=== PATIENT | male | born 1970 | race Caucasian/White ===

== ENCOUNTER 2019-11-23 15:22 | Inpatient (IN) | payer SELFPAY ==
[~2019-11-23] VITALS: Ht 177.8 cm; Wt 140.7 kg
[~2019-11-23 15:22] MED LIST: LEVO75TA PO; LORA10TA68 PO; MULT1TAB52 PO; NAPR-514 PO; OLME20TA17 PO; OXYC1TAB22 PO; TEST200V3 IM
--- NOTE | 2019-11-23 15:44 | PHYS DOC ---
Past History Past Medical History: Other (MARY LANGFORD MD) Adult General Chief Complaint Chief Complaint: SHORTNESS OF BREATH HPI HPI Patient is a 49-year-old male who presents with complaint of shortness of breath and cough that has been going on for the last few weeks. Patient indicates that symptoms have gotten progressively worse and now he is getting severely short of breath with minimal exertion. He also admits to swelling in his right lower leg that is greater than the left leg. He states that that is not normal for him. Patient is not aware of any history of blood clots. He denies any chest pain. He also denies any fever. Patient states that his cough is intermittently productive of clear sputum.[] (ALEXA WAGNER Jr. DO) Review of Systems Review of Systems Constitutional: Denies fever or chills [] Respiratory: Positive cough and shortness of breath [] Cardiovascular: No additional information not addressed in HPI [] GI: Denies abdominal pain, nausea, vomiting or diarrhea [] Integument: Denies rash or skin lesions [] Neurologic: Denies headache, focal weakness or sensory changes [] All other systems were reviewed and found to be within normal limits, except as documented in this note. (ALEXA WAGNER Jr. DO) Current Medications Current Medications Current Medications Medications (Trade) Dose Ordered Sig/Blas Start Time Stop Time Status Last Admin Dose Admin Albuterol/ Ipratropium (Duoneb) 3 ml 1X ONCE 11/23/19 15:45 11/23/19 15:46 UNV (ALEXA WAGNER Jr. DO) Allergies Allergies Allergies Coded Allergies Type Severity Reaction Last Updated Verified morphine Allergy Mild itch 08/19/14 Yes oxycodone Allergy Mild nightmares 08/19/14 Yes (ALEXA WAGNER Jr. DO) Physical Exam Physical Exam Constitutional: Well developed, well nourished, no acute distress, non-toxic appearance. [] HENT: Normocephalic, atraumatic, bilateral external ears normal, oropharynx moist, no oral exudates, nose normal. [] Eyes: PERRLA, EOMI, conjunctiva normal, no discharge. [] Neck: Normal range of motion, no tenderness, supple. [] Cardiovascular: Tachycardic rate with regular rhythm[] Lungs & Thorax: Slightly diminished breath sounds are noted bilaterally to auscultation [] Abdomen: Bowel sounds normal, soft, no tenderness. [] Skin: Warm, dry, no erythema, no rash. [] Extremities: No tenderness, no cyanosis, no clubbing, ROM intact, with bilateral lower extremity edema, right greater than left. [] Neurologic: Alert and oriented X 3, no focal deficits noted. [] (ALEXA WAGNER Jr., DO) EKG EKG EKG demonstrates sinus tachycardia with rate of 124.[] (ALEXA WAGNER Jr., DO) Radiology/Procedures Radiology/Procedures [] Impressions: REASON: dyspnea, non-smoker, no lung or heart problems in past PROCEDURE: PORTABLE CHEST 1V EXAM: Chest, single view. HISTORY: Dyspnea. COMPARISON: None. FINDINGS: A frontal view of the chest obtained. There is mild interstitial prominence without laura congestion or is focal consolidation. There is no pleural effusion or pneumothorax. There is a prominent cardiac silhouette, a component of which is accentuated due to portable technique. IMPRESSION: No acute pulmonary finding. Electronically signed by: Nohemy Doyle MD (11/23/2019 4:30 PM) [place] [id number] DICTATED AND SIGNED BY: NOHEMY DOYLE MD DATE: 11/23/19 1630 CC: ALEXA WAGNER Jr., DO; XIOMARA LOO MD ~ PROCEDURE: CT ANGIOGRAPHY CHEST CTA Chest with contrast: Clinical History: Shortness of breath. Axial helical images of the chest were obtained after the administration of 100 cc of IV Isovue-370 and timed appropriately for a pulmonary arterial study. Conventional axial reconstruction was performed in addition to coronal, sagittal and bilateral oblique MIP (maximum intensity projection). This study was ordered to detect possible pulmonary embolism. There are no filling defects to suggest pulmonary embolism. The more peripheral subsegmental pulmonary arteries are not well opacified limiting our sensitivity for small peripheral pulmonary emboli. There is mild groundglass opacities in the lungs. There is no mediastinal or hilar lymphadenopathy. The thoracic aorta appears normal. Impression: 1. No evidence of pulmonary embolism. 2. Mild groundglass opacities are nonspecific and likely discoid atelectasis. PQRS Compliance Statement: One or more of the following individualized dose reduction techniques were utilized for this examination: 1. Automated exposure control 2. Adjustment of the mA and/or kV according to patient size 3. Use of iterative reconstruction technique Electronically signed by: Anabela Jones III, MD (11/23/2019 6:30 PM) [facility] DICTATED AND SIGNED BY: ANABELA JONES III, MD DATE: 11/23/191829 (ALEXA WAGNER Jr., DO) Course & Med Decision Making Course & Med Decision Making Pertinent Labs and Imaging studies reviewed. (See chart for details) [] (ALEXA WAGNER Jr., DO) Course & Med Decision Making See Dr. Wagner chart for details. (MARY LANGFORD MD) Dragon Disclaimer Dragon Disclaimer This electronic medical record was generated, in whole or in part, using a voice recognition dictation system. (ALEXA WAGNER Jr., DO) Departure Departure: Impression: Primary Impression: CHF (congestive heart failure) Additional Impression: Hypoxemia Disposition: ADMITTED INPATIENT Admitting Physician: Luis Ballesteros (ALEXA WAGNER Jr., DO) Condition: IMPROVED Dragon Disclaimer This chart was dictated in whole or in part using Voice Recognition software in a busy, high-work load, and often noisy Emergency Department environment. It may contain unintended and wholly unrecognized errors or omissions. (MARY LANGFORD MD) Dragon Disclaimer This chart was dictated in whole or in part using Voice Recognition software in a busy, high-work load, and often noisy Emergency Department environment. It may contain unintended and wholly unrecognized errors or omissions. (ALEXA WAGNER Jr., DO) Dragon Disclaimer This chart was dictated in whole or in part using Voice Recognition software in a busy, high-work load, and often noisy Emergency Department environment. It may contain unintended and wholly unrecognized errors or omissions. (MARY LANGFORD MD) Dragon Disclaimer This chart was dictated in whole or in part using Voice Recognition software in a busy, high-work load, and often noisy Emergency Department environment. It may contain unintended and wholly unrecognized errors or omissions. (ALEXA WAGNER Jr., DO) Problem Qualifiers Primary Impression: CHF (congestive heart failure) Heart failure type: unspecified Heart failure chronicity: unspecified Qualified Codes: I50.9 - Heart failure, unspecified ALEXA WAGNER Jr., DO Nov 23, 2019 15:44 MARY LANGFORD MD Nov 24, 2019 00:07
[2019-11-23] MEDS ORDERED: IPRATRPIUM/ALBUTEROL 0.5/2.5MG 3 ML NEBU. NEB ONE (15:45)
[2019-11-23 15:59] LABS: BASO # 0.1 x10^3/uL (0.0-0.2); BASO % 1 % (0-3); EOS # 0.2 x10^3/uL (0.0-0.7); EOS % 2 % (0-3); HEMATOCRIT 48.6 % (39.0-53.0); HEMOGLOBIN 15.9 g/dL (13.0-17.5); LYMPH # 1.1 x10^3/uL (1.0-4.8); LYMPH % 11 % (24-48); MEAN CORPUSCULAR HEMOGLOBIN 27 pg (25-35); MEAN CORPUSCULAR HGB CONC 33 g/dL (31-37); MEAN CORPUSCULAR VOLUME 83 fL (79-100); MONO % 10 % (0-9); NEUT # 7.8 x10^3uL (1.8-7.7); NEUT % 77 % (31-73); PLATELET COUNT 283 x10^3/uL (140-400); RED BLOOD COUNT 5.83 x10^6/uL (4.30-5.70); RED CELL DISTRIBUTION WIDTH 14.7 % (11.5-14.5); WHITE BLOOD COUNT 10.2 x10^3/uL (4.0-11.0)
[2019-11-23 16:10] LABS: CALCIUM 8.8 mg/dL (8.5-10.1); CREATININE 1.1 mg/dL (0.7-1.3); GFR 71.1; POTASSIUM 4.3 mmol/L (3.5-5.1)
[2019-11-23 16:19] LABS: ALBUMIN 3.3 g/dL (3.4-5.0); ALBUMIN/GLOBULIN RATIO 0.9 (1.0-1.7); TOTAL BILIRUBIN 0.5 mg/dL (0.2-1.0); TOTAL PROTEIN 6.9 g/dL (6.4-8.2)
--- NOTE | 2019-11-23 16:33 | RAD ---
EXAM: Chest, single view. HISTORY: Dyspnea. COMPARISON: None. FINDINGS: A frontal view of the chest obtained. There is mild interstitial prominence without laura congestion or is focal consolidation. There is no pleural effusion or pneumothorax. There is a prominent cardiac silhouette, a component of which is accentuated due to portable technique. IMPRESSION: No acute pulmonary finding. Electronically signed by: Nohemy Sood MD (11/23/2019 4:30 PM) [place] [id number]
--- NOTE | 2019-11-23 16:37 | RAD ---
EXAM: Right lower extremity venous Doppler sonogram. HISTORY: Pain and swelling. TECHNIQUE: Schmid scale and color Doppler sonographic evaluation of the right lower extremity veins with spectral waveform analysis was performed. FINDINGS: There is normal color flow, normal compressibility and there are normal spectral waveforms in the common femoral, superficial femoral, popliteal, posterior tibial and greater saphenous veins. IMPRESSION: No Doppler evidence of lower extremity deep venous thrombosis. Electronically signed by: Nohemy Sood MD (11/23/2019 4:34 PM) [place] [id number]
[2019-11-23] MEDS ORDERED: IOHEXOL 350 MG/ML 100 ML VIAL. IV ONE (18:00)
[2019-11-23] MEDS ORDERED: IOHEXOL 350 MG/ML 100 ML VIAL. ONE (18:04)
[2019-11-23] MEDS ORDERED: ONDANSETRON PF 4 MG/2 ML VIAL. IV PRN (18:30)
--- NOTE | 2019-11-23 18:32 | RAD ---
CTA Chest with contrast: Clinical History: Shortness of breath. Axial helical images of the chest were obtained after the administration of 100 cc of IV Isovue-370 and timed appropriately for a pulmonary arterial study. Conventional axial reconstruction was performed in addition to coronal, sagittal and bilateral oblique MIP (maximum intensity projection). This study was ordered to detect possible pulmonary embolism. There are no filling defects to suggest pulmonary embolism. The more peripheral subsegmental pulmonary arteries are not well opacified limiting our sensitivity for small peripheral pulmonary emboli. There is mild groundglass opacities in the lungs. There is no mediastinal or hilar lymphadenopathy. The thoracic aorta appears normal. Impression: 1. No evidence of pulmonary embolism. 2. Mild groundglass opacities are nonspecific and likely discoid atelectasis. PQRS Compliance Statement: One or more of the following individualized dose reduction techniques were utilized for this examination: 1. Automated exposure control 2. Adjustment of the mA and/or kV according to patient size 3. Use of iterative reconstruction technique Electronically signed by: Jairo Larkin III, MD (11/23/2019 6:30 PM) [facility]
[2019-11-23] MEDS: IPRATRPIUM/ALBUTEROL 0.5/2.5MG 3 ML NEBU. NEB SCH (20:00)
[2019-11-24 01:06] VITALS: BP 127/105
--- NOTE | 2019-11-24 04:33 | NUR ---
Pt transported from ED to ICU room 5 for CHF/SOA with possession @ 0045. Assessment as charted. Admission checklist started. Pt monitored on Telemetry with Sinus Tachycardia 100-130s. No complaints of pain at the moment. Continue with plan of care
[2019-11-24] MEDS: IPRATRPIUM/ALBUTEROL 0.5/2.5MG 3 ML NEBU. NEB SCH ×3 (05:21→16:00)
[2019-11-24 05:47] VITALS: BP 106/88
--- NOTE | 2019-11-24 05:49 | EKG ---
[address] [address] Test Date: 2019-11-23 Test Time: 20:30:07 Pat Name: MIHAI RAMIREZ Department: Room: Gender: M Jewel Supervisor: : 1970 Requested By: ALEXA VANCE Order Number: [id number] Reading MD: Measurements Intervals [place] Rate: 105 P: 60 HI: 144 QRS: 55 QRSD: 82 T: 55 QT: 350 QTc: 467 Interpretive Statements SINUS TACHYCARDIA LEFT ATRIAL ABNORMALITY R-S TRANSITION ZONE IN V LEADS DISPLACED TO THE LEFT LOW LIMB LEAD VOLTAGE ABNORMAL ECG RI6.01 No previous ECG available for comparison
[2019-11-24 07:18] LABS: BASO # 0.1 x10^3/uL (0.0-0.2); BASO % 1 % (0-3); EOS # 0.4 x10^3/uL (0.0-0.7); EOS % 4 % (0-3); HEMATOCRIT 46.4 % (39.0-53.0); HEMOGLOBIN 15.1 g/dL (13.0-17.5); LYMPH # 1.1 x10^3/uL (1.0-4.8); LYMPH % 11 % (24-48); MEAN CORPUSCULAR HEMOGLOBIN 28 pg (25-35); MEAN CORPUSCULAR HGB CONC 33 g/dL (31-37); MEAN CORPUSCULAR VOLUME 84 fL (79-100); MONO # 0.9 x10^3/uL (0.0-1.1); MONO % 9 % (0-9); NEUT # 7.5 x10^3uL (1.8-7.7); NEUT % 75 % (31-73); PLATELET COUNT 235 x10^3/uL (140-400); RED BLOOD COUNT 5.49 x10^6/uL (4.30-5.70); RED CELL DISTRIBUTION WIDTH 14.6 % (11.5-14.5)
[2019-11-24 07:29] LABS: CALCIUM 8.2 mg/dL (8.5-10.1); CREATININE 1.1 mg/dL (0.7-1.3); GFR 71.1; POTASSIUM 4.1 mmol/L (3.5-5.1)
[2019-11-24] MEDS ORDERED: oxyCODONE/APAP 10/325 1 TAB TABLET PO PRN (07:45)
[2019-11-24] MEDS ORDERED: LISI1TAB19 PO (08:21)
[2019-11-24 08:30] LABS: BGAS PH 7.6 (7.35-7.46)
[2019-11-24] MEDS ORDERED: hydroCHLOROthiazide 12.5 MG CAPSULE PO SCH (09:00)
[2019-11-24] MEDS ORDERED: LISINOPRIL 20 MG TABLET PO SCH (09:00)
[2019-11-24] MEDS ORDERED: NAPROXEN 500 MG TABLET PO SCH (09:00)
[2019-11-24] MEDS: MULTIVITAMIN with MINERAL TABLET. PO SCH (09:02)
[2019-11-24] MEDS: LEVOTHYROXINE 75 MCG TABLET PO SCH (09:03)
[2019-11-24 09:22] VITALS: BP 114/69
[2019-11-24] MEDS ORDERED: FUROSEMIDE 40 MG/4 ML VIAL IVP ONE (09:30)
--- NOTE | 2019-11-24 09:30 | NUR ---
Dr Conner here to see pt. Order for [address] stated he would look at meds and hx and adjust treatment accordingly.
[2019-11-24 11:25] VITALS: BP 133/87
[2019-11-24] MEDS ORDERED: MAGNESIUM HYDROXIDE 2,400 MG/30 ML ORAL.SUSP. PO PRN (11:30)
--- NOTE | 2019-11-24 11:37 | NUR ---
Pt has voiced 1600 cc urine thus far. Urine lt yellow. Pt states he is constipated. Order for MOM. Pt noted to have significant periods of apneic spells. 20-30 sec. Pt on 2l/NC. to bring in home CPAP.
[2019-11-24 16:11] VITALS: BP 122/90
--- NOTE | 2019-11-24 17:54 | PDOC2 ---
CARDIAC CONSULT DATE OF CONSULT Date Of Consult DATE: 11/24/19 TIME: 17:49 REASON FOR CONSULT Reason for Consult Shortness of breath REFERRING PHYSICIAN Referring Physician Dr. Ballesteros SOURCE Source: Chart review, Patient HPI History of Present Illness The patient is an obese 49-year-old male who was admitted through the emergency room for several weeks of increasing shortness of breath and lower extremity swelling. The patient denies any chest pain. He states he has had similar problems in the past but denies any history of coronary disease or DVTs. Initial workup has shown a chest x-ray that shows no acute findings. CT scan of the chest showed no evidence of pulmonary emboli. Troponin has peaked at 0.086 creatinine of 1.1. Though she may ultrasound shows no DVT. EKG shows a sinus rhythm with no ischemic changes. With pulmonary medications overnight the patient is feeling better today. PAST MEDICAL HISTORY Cardiovascular: HTN Pulmonary: Bronchitis Dermatology: Cellulitis PAST SURGICAL HISTORY Past Surgical History: No pertinent history FAMILY HISTORY Family History: Hypertension SOCIAL HISTORY Smoke: No CURRENT MEDICATIONS Current Medications Current Medications Albuterol/ Ipratropium (Duoneb) 3 ml 1X ONCE NEB Last administered on 11/23/19at 15:46; Start 11/23/19 at 15:45; Stop 11/23/19 at 15:58; Status DC Iohexol (Omnipaque 350 Mg/ml) 100 ml 1X ONCE IV Last administered on 11/23/19at 18:06; Start 11/23/19 at 18:00; Stop 11/23/19 at 18:04; Status DC Iohexol (Omnipaque 350 Mg/ml) 100 ml STK-MED ONCE .ROUTE ; Start 11/23/19 at 18:04; Stop 11/23/19 at 18:05; Status DC Ondansetron HCl (Zofran) 4 mg PRN Q4HRS PRN IV NAUSEA/VOMITING; Start 11/23/19 at 18:30; Stop 11/24/19 at 18:29 Albuterol/ Ipratropium (Duoneb) 3 ml RTQID NEB Last administered on 11/24/19at 16:00; Start 11/23/19 at 20:00; Stop 11/24/19 at 19:59 Levothyroxine Sodium (Synthroid) 75 mcg DAILY06 PO Last administered on 11/24/19at 09:03; Start 11/24/19 at 08:00 Naproxen (Naprosyn) 500 mg BID PO Last administered on 11/24/19at 09:03; Start 11/24/19 at 09:00 Oxycodone/ Acetaminophen (Percocet 10/325) 1 tab PRN Q6HRS PRN PO PAIN; Start 11/24/19 at 07:45 Multivitamins/ Calcium (Thera-M Plus) 1 tab DAILY PO Last administered on 11/24/19at 09:02; Start 11/24/19 at 09:00 Lisinopril (Prinivil) 20 mg DAILY PO Last administered on 11/24/19at 09:03; Start 11/24/19 at 09:00 Hydrochlorothiazide (Microzide) 12.5 mg DAILY PO Last administered on 11/24/19at 09:03; Start 11/24/19 at 09:00 Furosemide (Lasix) 40 mg 1X ONCE IVP Last administered on 11/24/19at 09:30; Start 11/24/19 at 09:30; Stop 11/24/19 at 09:31; Status DC Magnesium Hydroxide (Milk Of Magnesia) 2,400 mg PRN DAILY PRN PO CONSTIPATION Last administered on 11/24/19at 12:02; Start 11/24/19 at 11:30 Active Scripts Active Reported Lisinopril-Hctz 20-12.5 Mg Tab (Lisinopril/Hydrochlorothiazide) 1 Each Tablet 1 Tab PO DAILY Multivitamins (Multivitamin) 1 Each Tablet 1 Tab PO DAILY Testosterone Cypionate 200 Mg/1 Ml Vial 1 Ml IM Q4WK Percocet 10-325 Mg Tablet (Oxycodone Hcl/Acetaminophen) 1 Each Tablet 1 Tab PO Q4-6HRS Naproxen 500 Mg Tablet 1 Tab PO BID Synthroid (Levothyroxine Sodium) 75 Mcg Tablet 1 Tab PO DAILY ALLERGIES Allergies: Coded Allergies: morphine (Verified Allergy, Mild, itch, 08/19/14) oxycodone (Verified Allergy, Mild, nightmares, 08/19/14) ROS Respiratory: YES: Shortness of breath, SOB with excertion PHYSICAL EXAM General: mild distress HEENT: Atraumatic Lungs: Other (decreased breath sounds) Heart: Regular rate Abdomen: Normal bowel sounds Extremities: Other (mild to moderate bilateral edema) VITALS Vital Signs Vital Signs Date Time Temp Pulse Resp B/P (MAP) Pulse Ox O2 Delivery O2 Flow Rate FiO2 11/24/19 16:11 97.9 107 28 122/90 (101) 2.0 11/24/19 16:01 96 Nasal Cannula LABS LABS Laboratory Tests Test 11/23/19 15:38 11/23/19 16:18 11/24/19 00:55 11/24/19 05:30 White Blood Count 10.2 x10^3/uL (4.0-11.0) 10.0 x10^3/uL (4.0-11.0) Red Blood Count 5.83 x10^6/uL (4.30-5.70) 5.49 x10^6/uL (4.30-5.70) Hemoglobin 15.9 g/dL (13.0-17.5) 15.1 g/dL (13.0-17.5) Hematocrit 48.6 % (39.0-53.0) 46.4 % (39.0-53.0) Mean Corpuscular Volume 83 fL (79-100) 84 fL (79-100) Mean Corpuscular Hemoglobin 27 pg (25-35) 28 pg (25-35) Mean Corpuscular Hemoglobin Concent 33 g/dL (31-37) 33 g/dL (31-37) Red Cell Distribution Width 14.7 % (11.5-14.5) 14.6 % (11.5-14.5) Platelet Count 283 x10^3/uL (140-400) 235 x10^3/uL (140-400) Neutrophils (%) (Auto) 77 % (31-73) 75 % (31-73) Lymphocytes (%) (Auto) 11 % (24-48) 11 % (24-48) Monocytes (%) (Auto) 10 % (0-9) 9 % (0-9) Eosinophils (%) (Auto) 2 % (0-3) 4 % (0-3) Basophils (%) (Auto) 1 % (0-3) 1 % (0-3) Neutrophils # (Auto) 7.8 x10^3uL (1.8-7.7) 7.5 x10^3uL (1.8-7.7) Lymphocytes # (Auto) 1.1 x10^3/uL (1.0-4.8) 1.1 x10^3/uL (1.0-4.8) Monocytes # (Auto) 1.0 x10^3/uL (0.0-1.1) 0.9 x10^3/uL (0.0-1.1) Eosinophils # (Auto) 0.2 x10^3/uL (0.0-0.7) 0.4 x10^3/uL (0.0-0.7) Basophils # (Auto) 0.1 x10^3/uL (0.0-0.2) 0.1 x10^3/uL (0.0-0.2) D-Dimer (Angelika) 0.58 mg/L (0.00-0.50) Sodium Level 141 mmol/L (136-145) 142 mmol/L (136-145) Potassium Level 4.3 mmol/L (3.5-5.1) 4.1 mmol/L (3.5-5.1) Chloride Level 102 mmol/L (98-107) 103 mmol/L (98-107) Carbon Dioxide Level 36 mmol/L (21-32) 36 mmol/L (21-32) Anion Gap 3 (6-14) 3 (6-14) Blood Urea Nitrogen 17 mg/dL (8-26) 20 mg/dL (8-26) Creatinine 1.1 mg/dL (0.7-1.3) 1.1 mg/dL (0.7-1.3) Estimated GFR (Cockcroft-Gault) 71.1 71.1 BUN/Creatinine Ratio 15 (6-20) Glucose Level 147 mg/dL (70-99) 172 mg/dL (70-99) Calcium Level 8.8 mg/dL (8.5-10.1) 8.2 mg/dL (8.5-10.1) Total Bilirubin 0.5 mg/dL (0.2-1.0) Aspartate Amino Transf (AST/SGOT) 21 U/L (15-37) Alanine Aminotransferase (ALT/SGPT) 30 U/L (16-63) Alkaline Phosphatase 81 U/L (46-116) Troponin I Quantitative 0.058 ng/mL (0-0.055) 0.086 ng/mL (0-0.055) VT-Xzg-W-Type Natriuretic Peptide 3943 pg/mL (0-124) Total Protein 6.9 g/dL (6.4-8.2) Albumin 3.3 g/dL (3.4-5.0) Albumin/Globulin Ratio 0.9 (1.0-1.7) Blood Gas pH 7.60 (7.35-7.46) Blood Gas PCO2 29 mmHg (35-46) Blood Gas PO2 155 mmHg (80-100) Blood Gas HCO3 28 mmol/L (21-28) Arterial Bld O2 Saturation (Calc) 100 % (92-99) FiO2 40 % IMAGES IMAGES The above. EKG EKG Sinus rhythm with no ischemic changes. HEART CATH Heart Cath 1. Shortness of breath. Probable heart failure contributing to patient's underlying pulmonary disease and obesity. No evidence of an acute infarct. Would continue primary treatments. We'll mildly diuresis and monitor lab. We'll check an echocardiogram. 2. Lower extremity swelling. No DVTs on ultrasound examination. We'll continue treatment as above. 3. Obesity. Contributing factor to the patient's shortness of breath. Sleep apnea. Discussed with the patient. 4. Borderline hypertension. We'll continue to monitor and adjust meds as needed. 5. Unknown cholesterol level. We'll check a panel in the morning. Thank you for allowing us to participate in the care of your patient. LETICIA CEJA MD Nov 24, 2019 17:54
--- NOTE | 2019-11-24 18:41 | HP ---
ADMIT DATE: 11/23/2019 HISTORY OF PRESENT ILLNESS: The patient is a 49-year-old male patient who came to the Emergency Room complaining of shortness of breath. He stated that this has been going on for the last 2 weeks. 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 He has also cough with scanty whitish sputum and chest tightness and wheezing as well as orthopnea. He was extensively evaluated in the Emergency Room and has had lab work, which was unremarkable. His chemistry was also unremarkable. His first set of cardiac enzymes showed troponin-I of 0.058. His blood gases showed that, in fact, he is actually hyperventilating. Her pH was 7.6, pCO2 of 29, pO2 of 155, bicarbonate 28 and his oxygen saturation was 100% on FiO2 of 40%. His D-dimer was high at 0.58. Has had a chest x-ray, which showed that there is mild interstitial prominence without laura congestion or focal consolidation. There is no pleural effusion or pneumothorax. There is a prominent cardiac silhouette, the component of which is accentuated due to portable technique. Because of elevated D-dimer, he had bilateral lower extremity venous Doppler ultrasound, which showed no Doppler evidence of lower extremity deep vein thrombosis, has had CT angio of the chest, which basically showed no evidence of pulmonary embolism, mild ground glass opacities are nonspecific and likely discoid atelectasis. There are no filling defects to suggest pulmonary embolism. The more peripheral subsegmental pulmonary arteries are not well opacified limiting sensitivity for small peripheral pulmonary emboli. The patient was admitted with hypoxia and questionable right-sided heart failure, marked bilateral lower limb edema. He was admitted to the ICU and we did consult the cardiology team to assist with management. PAST MEDICAL HISTORY: Significant for hypertension, hypothyroidism, chronic obstructive pulmonary disease, morbid obesity with a body mass index of 45.7 kilograms square meter. He has also obstructive sleep apnea, on CPAP. He is also known to have severe constipation. PAST SURGICAL HISTORY: Significant for shoulder surgery, left knee arthroscopic surgery and right hand surgery repair for ligament rupture. ALLERGIES: HE IS ALLERGIC TO MORPHINE AND OXYCODONE. MEDICATIONS: He is currently on following medications: He is on lisinopril/hydrochlorothiazide 20/12.5, naproxen 500 mg twice a day, oxycodone/APAP 10/25 one tablet every 4-6 hours, takes testosterone cypionate 200 mg 1 mL every 4 weeks, levothyroxine 75 mcg once a day and multivitamin 1 tablet once a day. FAMILY HISTORY: He has 1 younger brother who is healthy. Father still alive at age of 69 and has coronary artery bypass graft surgery. Mother is still alive and survived uterine cancer. SOCIAL HISTORY: He is , has 4 boys. He never smoked, drinks alcohol on the weekends, does not use any drugs. 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 PHYSICAL EXAMINATION: GENERAL: On arrival to the Emergency Room, the patient was hypoxic, but there was no pallor, jaundice, cyanosis or thyromegaly. No jugular venous distention, but marked bilateral lower limb edema. VITAL SIGNS: His heart rate was 117, blood pressure was 143/67, temperature was 97.6, respiratory rate was 18 and oxygen saturation was 93% on 5 liters of oxygen. HEAD, EYES, EARS, NOSE AND THROAT: Showed normocephalic, atraumatic. NECK: Supple. HEART: Showed normal first and second heart sounds. No gallop, rub or murmur. CHEST: Clear to auscultation. No crepitation or rhonchi. ABDOMEN: Distended, soft, nontender. No guarding or rigidity. No organomegaly. All hernial orifice intact. Bowel sounds normal. NEUROLOGIC: He was awake, alert, responding appropriately. All cranial nerves intact. EXTREMITIES: He moves extremities without difficulty. LABORATORY DATA: On admission showed a white cell count of 10,200, hemoglobin 15.9, hematocrit 48, MCV 83 and platelet count 183,000. His chemistry showed a serum sodium 141, potassium 4.3, chloride 102, bicarbonate 36, anion gap of 3, BUN 17, creatinine 1.1, estimated GFR was 71 mL per minute, his glucose 147, calcium was 8.8. Total bilirubin, AST, ALT, alkaline phosphatase were normal. His beta natriuretic peptide was 3943. Total protein was 6.9, albumin was 3.3. His blood gases showed a pH of 7.6, pCO2 of 29, pO2 of 155, bicarbonate 28, and oxygen saturation was 100% on FiO2 of 40%. His D-dimer was high at 0.58. His bilateral lower extremity venous Doppler ultrasound was negative for DVT. CT angio was negative for pulmonary emboli, and chest x-ray was unremarkable except for a prominent cardiac silhouette. ASSESSMENT AND PLAN: The patient was admitted with acute hypoxic respiratory failure, most likely right-sided heart failure, morbid obesity, obstructive sleep apnea. He is known to have hypertension, hypothyroidism, morbid obesity and obstructive sleep apnea. He has severe constipation likely because he is hypothyroid, has now stopped taking his thyroid medicine. PLAN: My plan is to obviously continue with all his medications, and I will hold his naproxen as probably the reason for his fluid retention. Start him on Lasix on a daily basis and order an echocardiogram and consult the Cardiology team to assist with his management. CHRISTA CHAKRABORTY MD DR: EDI/errol JOB#: [id number] / [id number]
[2019-11-24 19:01] LABS: CALCIUM 8.4 mg/dL (8.5-10.1); GFR 79.4; POTASSIUM 4.4 mmol/L (3.5-5.1)
[2019-11-24 20:41] VITALS: BP 124/91
--- NOTE | 2019-11-24 23:44 | PN ---
DATE: 11/24/2019 SUBJECTIVE: The patient is resting, slightly propped up in bed, continued to complain of shortness of breath and marked swelling of both lower extremities. Denied any chest pain. He has had 2 sets of cardiac enzymes that were slightly elevated. He was seen by the revolving field assembler, and he showed no evidence of heart attack. PHYSICAL EXAMINATION: GENERAL: When I saw him this afternoon, he was resting slightly propped up in bed, in no apparent respiratory distress. No pallor, jaundice, cyanosis or thyromegaly. No jugular venous distention. No limb edema. VITAL SIGNS: His heart rate was 107, blood pressure 122/90, temperature 97.9, respiratory rate 28, and oxygen saturation was 96% on 2 liters of oxygen. HEAD, EYES, EARS, NOSE AND THROAT: Showed normocephalic, atraumatic. NECK: Supple. HEART: Showed normal first and second heart sounds with no gallop or murmur. CHEST: Clear to auscultation. No crepitation or rhonchi. ABDOMEN: Distended, soft, nontender. NEUROLOGIC: He was awake, alert, responding appropriately. All cranial nerves intact. He moves extremities without difficulty. Examination of extremities showed no clubbing or cyanosis, but marked bilateral lower limb edema. LABORATORY DATA: Lab work this morning showed a serum sodium 142, potassium 4.1, chloride 103, bicarbonate 36, anion gap of 3, BUN 20, creatinine 1.1, estimated GFR was 71 mL per minute. Her glucose 172, calcium of 8.2. ASSESSMENT: 1. Acute on chronic hypoxic respiratory failure. 2. Likely pulmonary hypertension and right-sided heart failure. 3. Morbid obesity, obstructive sleep apnea. 4. Hypertension. 5. Hypothyroidism. 6. Constipation. PLAN: My plan is to continue with IV Lasix. I will stop his hydrochlorothiazide for right now. Continue with IV Lasix and hold the naproxen. We will order an echocardiogram and decide further management accordingly. He should continue on his BiPAP machine at nighttime. Dictation Ends Here. CHRISTA CHAKRABORTY MD DR: EDI/errol JOB#: [id number] / [id number]
--- NOTE | 2019-11-25 03:05 | NUR ---
Pt walked over to [address] for shower at change of shift, tolerated well. Pt removed IV on accident, new IV started #20 right FA. Pt was given MOM earlier today, had good results. Pt on 2L NC during night because Pt refused to wear CPAP tonight. Pt wore CPAP for about 5mins and then refused to put back on. Pt is missing left side chin strap attachment causing device to "feel loose." Pt noted to have significant periods of apneic spells lasting 20-30 sec. often during the night.
[2019-11-25 04:55] VITALS: BP 137/92
[2019-11-25] MEDS: LEVOTHYROXINE 75 MCG TABLET PO SCH (05:24)
[2019-11-25 06:48] LABS: CALCIUM 8.7 mg/dL (8.5-10.1); CREATININE 0.9 mg/dL (0.7-1.3); GFR 89.7; POTASSIUM 4.4 mmol/L (3.5-5.1)
[2019-11-25] MEDS: MULTIVITAMIN with MINERAL TABLET. PO SCH (08:00)
[2019-11-25] MEDS ORDERED: NAPROXEN 500 MG TABLET PO ONE (08:15)
--- NOTE | 2019-11-25 08:26 | PDOC ---
DEBBIE SANCHEZ PHYSIOTHERAPIST'S ASSISTANT 11/25/19 0825: CARDIO Progress Notes Date & Time Date of Service DATE: 11/25/19 TIME: 08:21 Time of Evaluation 08:21 Subjective Notes Still very SOA, edematous today. Did not sleep well last night Vitals Vitals Vital Signs Date Time Temp Pulse Resp B/P (MAP) Pulse Ox O2 Delivery O2 Flow Rate FiO2 11/25/19 04:55 98.4 98 14 137/92 (107) 98 Nasal Cannula 3.5 Weight Weight [ ] Input and Output I.O. Intake and Output 11/25/19 07:00 Intake Total 2210 ml Output Total 4925 ml Balance -2715 ml Intake Oral 2210 ml Output Urine Total 4925 ml # Voids 2 # Bowel Movements 1 Laboratory Labs Laboratory Tests Test 11/23/19 15:38 11/23/19 16:18 11/24/19 00:55 11/24/19 05:30 White Blood Count 10.2 x10^3/uL (4.0-11.0) 10.0 x10^3/uL (4.0-11.0) Red Blood Count 5.83 x10^6/uL (4.30-5.70) 5.49 x10^6/uL (4.30-5.70) Hemoglobin 15.9 g/dL (13.0-17.5) 15.1 g/dL (13.0-17.5) Hematocrit 48.6 % (39.0-53.0) 46.4 % (39.0-53.0) Mean Corpuscular Volume 83 fL (79-100) 84 fL (79-100) Mean Corpuscular Hemoglobin 27 pg (25-35) 28 pg (25-35) Mean Corpuscular Hemoglobin Concent 33 g/dL (31-37) 33 g/dL (31-37) Red Cell Distribution Width 14.7 % (11.5-14.5) 14.6 % (11.5-14.5) Platelet Count 283 x10^3/uL (140-400) 235 x10^3/uL (140-400) Neutrophils (%) (Auto) 77 % (31-73) 75 % (31-73) Lymphocytes (%) (Auto) 11 % (24-48) 11 % (24-48) Monocytes (%) (Auto) 10 % (0-9) 9 % (0-9) Eosinophils (%) (Auto) 2 % (0-3) 4 % (0-3) Basophils (%) (Auto) 1 % (0-3) 1 % (0-3) Neutrophils # (Auto) 7.8 x10^3uL (1.8-7.7) 7.5 x10^3uL (1.8-7.7) Lymphocytes # (Auto) 1.1 x10^3/uL (1.0-4.8) 1.1 x10^3/uL (1.0-4.8) Monocytes # (Auto) 1.0 x10^3/uL (0.0-1.1) 0.9 x10^3/uL (0.0-1.1) Eosinophils # (Auto) 0.2 x10^3/uL (0.0-0.7) 0.4 x10^3/uL (0.0-0.7) Basophils # (Auto) 0.1 x10^3/uL (0.0-0.2) 0.1 x10^3/uL (0.0-0.2) D-Dimer (Angelika) 0.58 mg/L (0.00-0.50) Sodium Level 141 mmol/L (136-145) 142 mmol/L (136-145) Potassium Level 4.3 mmol/L (3.5-5.1) 4.1 mmol/L (3.5-5.1) Chloride Level 102 mmol/L (98-107) 103 mmol/L (98-107) Carbon Dioxide Level 36 mmol/L (21-32) 36 mmol/L (21-32) Anion Gap 3 (6-14) 3 (6-14) Blood Urea Nitrogen 17 mg/dL (8-26) 20 mg/dL (8-26) Creatinine 1.1 mg/dL (0.7-1.3) 1.1 mg/dL (0.7-1.3) Estimated GFR (Cockcroft-Gault) 71.1 71.1 BUN/Creatinine Ratio 15 (6-20) Glucose Level 147 mg/dL (70-99) 172 mg/dL (70-99) Calcium Level 8.8 mg/dL (8.5-10.1) 8.2 mg/dL (8.5-10.1) Total Bilirubin 0.5 mg/dL (0.2-1.0) Aspartate Amino Transf (AST/SGOT) 21 U/L (15-37) Alanine Aminotransferase (ALT/SGPT) 30 U/L (16-63) Alkaline Phosphatase 81 U/L (46-116) Troponin I Quantitative 0.058 ng/mL (0-0.055) 0.086 ng/mL (0-0.055) CK-Qcs-E-Type Natriuretic Peptide 3943 pg/mL (0-124) Total Protein 6.9 g/dL (6.4-8.2) Albumin 3.3 g/dL (3.4-5.0) Albumin/Globulin Ratio 0.9 (1.0-1.7) Blood Gas pH 7.60 (7.35-7.46) Blood Gas PCO2 29 mmHg (35-46) Blood Gas PO2 155 mmHg (80-100) Blood Gas HCO3 28 mmol/L (21-28) Arterial Bld O2 Saturation (Calc) 100 % (92-99) FiO2 40 % Test 11/24/19 18:49 11/25/19 05:42 Sodium Level 142 mmol/L (136-145) 139 mmol/L (136-145) Potassium Level 4.4 mmol/L (3.5-5.1) 4.4 mmol/L (3.5-5.1) Chloride Level 102 mmol/L (98-107) 101 mmol/L (98-107) Carbon Dioxide Level 38 mmol/L (21-32) 35 mmol/L (21-32) Anion Gap 2 (6-14) 3 (6-14) Blood Urea Nitrogen 16 mg/dL (8-26) 17 mg/dL (8-26) Creatinine 1.0 mg/dL (0.7-1.3) 0.9 mg/dL (0.7-1.3) Estimated GFR (Cockcroft-Gault) 79.4 89.7 Glucose Level 158 mg/dL (70-99) 158 mg/dL (70-99) Calcium Level 8.4 mg/dL (8.5-10.1) 8.7 mg/dL (8.5-10.1) Troponin I Quantitative 0.066 ng/mL (0-0.055) Physical Exams HEENT: Neck Supple W Full Motion Chest: Symmetric Lungs: Other (diminished ) Heart: S1S2, RRR (SR/ST) Abdomen: Soft N/T, Other (obesse ) Extremities: Other (2+ bilateral LE edema ) Neurology: alert, oriented, follow commands Assessment Assessment 1. Acute respiratory failure; multifactorial with a/c CHF and severe untreated MIKO 2. Acute on chronic systolic CHF 3. Cardiomyopathy; LVEF 10% per echo. New finding 4. Mild troponin elevation; peak 0.08. Most probable type II, demand ischemia. CP free. 5. Hypertension; controlled 6. Hyperlipidemia 7. Severe MIKO; CPAP at home, but does note use 8. Morbid obesity 9. ETOH; has been drinking more here recently since losing his job. Recommendations Needs aggressive diuresis Lipids Will treat medically; start HF optimization with BB, ACEi, Lasix, and spironolactone SS consult; recently lost job and insurance coverage. Thinks he may be able to get on his 's insurance Discussed importance of compliance with CPAP Encouraged weight loss 2000cc FR, 2Gm Na diet Will need close outpatient followup Re-evaluate LVEF with echo on an outpatient basis in 3 months Consider outpatient ischemic evaluation SATURNINO SONG MD 11/25/191914: CARDIO Progress Notes Plan Plan Patient seen and examined. Agree with above nurse practitioner note. He appears to be continue to have significant heart failure symptoms. Plan for continue diuresis and initiation of heart failure regimen as noted. Echocardiogram reviewed with the patient and his mother. Discussed lifestyle changes including cessation of alcohol, compliance with sleep apnea therapy and weight loss. We will plan for outpatient ischemic evaluation once he has been more stabilized. Thank you for this consultation. DEBBIE SANCHEZ APRN Nov 25, 2019 08:25 SATURNINO SONG MD Nov 25, 2019 19:15
[2019-11-25 09:00] VITALS: BP 127/89
[2019-11-25] MEDS ORDERED: FUROSEMIDE 40 MG/4 ML VIAL IVP SCH (09:00)
[2019-11-25] MEDS: FLUTICASONE 50MCG/NASAL SPRAY 16GM BOTTLE. NS SCH (09:43)
[2019-11-25 11:00] VITALS: BP 135/93
[2019-11-25 14:21] LABS: FREE T4 0.9 ng/dL (0.76-1.46); THYROID STIM HORMONE (TSH) 3.273 uIU/mL (0.358-3.740)
[2019-11-25 15:00] VITALS: BP 111/95
--- NOTE | 2019-11-25 15:08 | NUR ---
Patient has been resting off and on throughout the day. When patient is asleep he has apneic periods of 20-30 seconds with an increase in heart rate and desats into the 60's and 70's. I was able to obtain the missing piece to his CPAP from a product rep that was here today and educated patient about his Obstructive Sleep Apnea and his need for the CPAP and the importance of wearing it. Patient has been ad ramiro in his ADL's has been calm and cooperative, alert and oriented X 4.
--- NOTE | 2019-11-25 16:51 | CARD ---
MR#: [id number] Date of Study: 11/25/2019 Ordering Physician: LETICIA CEJA, Referring Physician: LETICIA CEJA, Tech: Emeli Oro BECK APPROVED REPORT EXAM: Three-dimensional, Two-dimensional and M-mode echocardiogram with Doppler and color Doppler. INDICATION Dyspnea RISK FACTORS Hypertension Obesity 2D DIMENSIONS RVDd3.5 (2.9-3.5cm)Left Atrium(2D)5.5 (1.6-4.0cm) IVSd1.6 (0.7-1.1cm)Aortic Root(2D)3.6 (2.0-3.7cm) LVDd5.7 (3.9-5.9cm)LVOT Diameter2.2 (1.8-2.4cm) PWd1.6 (0.7-1.1cm)LVDs5.2 (2.5-4.0cm) FS (%) 7.4 %LVEF(%)16.3 (>50%) Aortic Valve AoV Peak [place].94.4cm/sAoV VTI11.1cm AO Peak GR.4mmHgAO Mean GR.2mmHg AIMEE (VTI)4.07cm2 Mitral Valve MV E Ynendgny25.1cm/sMV DECEL [id number] MV A Zvuzvgrj56.0cm/sE/A Ratio1.2 Tricuspid Valve TR P. [id number]/sRAP [id number] TR Peak Gr.[id number] LEFT VENTRICLE The left ventricle is normal size. There is mild to moderate concentric left ventricular hypertrophy. Left ventricle systolic function is severely impaired. The Ejection Fraction is 10-15%. There is sev ere global hypokinesis of the left ventricle. The left ventricular diastolic function and filling is normal for age. RIGHT VENTRICLE The right ventricle is mildly dilated. RV Systolic function is mildly reduced. ATRIA The left atrium is moderately dilated. The right atrium is mildly dilated. The interatrial septum is intact with no evidence for an atrial septal defect or patent foramen ovale as noted on 2-D or Dopple r imaging. AORTIC VALVE The aortic valve is normal in structure and function. Doppler and Color Flow revealed no significant aortic regurgitation. There is no significant aortic valvular stenosis. MITRAL VALVE The mitral valve is normal in structure and function. There is no evidence of mitral valve prolapse. There is no mitral valve stenosis. Doppler and Color Flow revealed no mitral valve regurgitation note d. TRICUSPID VALVE The tricuspid valve is normal in structure and function. Doppler and Color Flow revealed trace tricus pid regurgitation. There is mild-moderate pulmonary hypertension. The PA pressure was estimated at 39 mmHg. There is no tricuspid valve stenosis. PULMONIC VALVE The pulmonic valve is not well visualized. Doppler and Color Flow revealed mild pulmonic valvular reg urgitation. There is no pulmonic valvular stenosis. GREAT VESSELS The aortic root is normal in size. The ascending aorta is mildly dilated at 3.5 cm. The IVC is dilate d and unresponsive. PERICARDIAL EFFUSION There is no evidence of significant pericardial effusion. Critical Notification Critical Value: No <Conclusion> Left ventricle systolic function is severely impaired. The Ejection Fraction is 10-15%. There is severe global hypokinesis of the left ventricle. The ascending aorta is mildly dilated at 3.5 cm. Signed by : Miguel Ángel Moreau, Electronically Approved : 11/25/2019 16:51:06
[2019-11-25] MEDS: FUROSEMIDE 40 MG/4 ML VIAL IVP SCH (17:18)
[2019-11-25 19:22] VITALS: BP 149/99
[2019-11-25 20:06] LABS: THYROXINE 5.2 ug/dL (4.5-12.0)
[2019-11-25 21:55] VITALS: BP 142/93
--- NOTE | 2019-11-25 23:31 | PN ---
DATE: 11/25/2019 SUBJECTIVE: The patient is sitting at the edge of the bed, eating his lunch comfortably, feeling somewhat better today. He was diuresed with IV Lasix. His echocardiogram showed that he has global hypokinesis, severely impaired left ventricular systolic function with ejection fraction of 10-15%. The route manager started him on Lasix and spironolactone and the plan is for him to be diuresed very well and eventually once he has insurance to undergo cardiac catheterization. PHYSICAL EXAMINATION: GENERAL: When I examined him this afternoon, he looked well and was clearly in no apparent respiratory distress. No pallor, jaundice, cyanosis or thyromegaly. No jugular venous distention or limb edema. VITAL SIGNS: His heart rate was 107, blood pressure was 111/95, temperature 98, respiratory rate was 14 and oxygen saturation was 93% on 3 liters of oxygen. EXTREMITIES: His legs noted to be swollen. The rest of clinical exam is stable. His intake over the last 24 hours was 2200, output was 4900. LABORATORY DATA: As of this morning, his serum sodium 139, potassium 4.4, chloride 101, bicarbonate 35, anion gap of 3, BUN 17, creatinine 0.9. He has 3 sets of cardiac enzymes that has been trending down. His serum triglycerides were 99, total cholesterol 138, LDL was 82, VLDL was 19, and HDL was 29, the ratio was 4. TSH and free T4 are normal. ASSESSMENT: Acute respiratory failure, multifactorial including morbid obesity, obstructive sleep apnea and congestive heart failure, acute on chronic diastolic congestive heart failure, cardiomyopathy with left ventricular ejection fraction of 10%, mild troponin elevation, likely demand ischemia. The patient has been chest pain free, hypertension, hyperlipidemia, severe obstructive sleep apnea, morbid obesity, alcohol. Apparently, he has been drinking more since he lost job recently. PLAN: To continue with current plan of management. We will follow his electrolytes to make sure that his potassium is within normal range. CHRISTA CHAKRABORTY MD DR: EDI/errol JOB#: [id number] / [id number]
--- NOTE | 2019-11-26 04:35 | NUR ---
Pt A&Ox4, pleasant and cooperative with assessment and cares. Pt had shower at change of shift, took independently. Pt uses urinal independently for accurate I&O. On FR of 200cc and needs frequent reminders. Pt resting off and on throughout shift with either CPAP or O2 via NC. When asleep, pt has apneic periods of 20-30 seconds and desats into the 70's when on just the O2. When pt wears his CPAP desats are in mid 80's. Pt educated on importance of wearing CPAP. Pt did wear his CPAP continually from 0005 till about 0200. Pt often pulls off CPAP while sleeping without knowing it.
[2019-11-26 05:59] VITALS: BP 127/85
[2019-11-26 06:50] LABS: CALCIUM 8.2 mg/dL (8.5-10.1); CREATININE 0.9 mg/dL (0.7-1.3); GFR 89.7; POTASSIUM 3.7 mmol/L (3.5-5.1)
[2019-11-26] MEDS: LEVOTHYROXINE 75 MCG TABLET PO SCH (06:53)
--- NOTE | 2019-11-26 08:35 | PDOC ---
DEBBIE SANCHEZ DISTRIBUTION DISPATCHER 11/26/19 0835: CARDIO Progress Notes Date & Time Date of Service DATE: 11/26/19 TIME: 08:33 Time of Evaluation 08:33 Subjective Notes SOA improved. Continued with LE edema Vitals Vitals Vital Signs Date Time Temp Pulse Resp B/P (MAP) Pulse Ox O2 Delivery O2 Flow Rate FiO2 11/26/19 05:59 97.5 108 20 127/85 (99) 95 Nasal Cannula 3.0 Weight Weight [ ] Input and Output I.O. Intake and Output 11/26/19 07:00 Intake Total 2050 ml Output Total 6100 ml Balance -4050 ml Intake Oral 2050 ml Output Urine Total 6100 ml # Voids 1 Laboratory Labs Laboratory Tests Test 11/24/19 18:49 11/25/19 05:42 11/26/19 05:54 Sodium Level 142 mmol/L (136-145) 139 mmol/L (136-145) 140 mmol/L (136-145) Potassium Level 4.4 mmol/L (3.5-5.1) 4.4 mmol/L (3.5-5.1) 3.7 mmol/L (3.5-5.1) Chloride Level 102 mmol/L (98-107) 101 mmol/L (98-107) 100 mmol/L (98-107) Carbon Dioxide Level 38 mmol/L (21-32) 35 mmol/L (21-32) 38 mmol/L (21-32) Anion Gap 2 (6-14) 3 (6-14) 2 (6-14) Blood Urea Nitrogen 16 mg/dL (8-26) 17 mg/dL (8-26) 15 mg/dL (8-26) Creatinine 1.0 mg/dL (0.7-1.3) 0.9 mg/dL (0.7-1.3) 0.9 mg/dL (0.7-1.3) Estimated GFR (Cockcroft-Gault) 79.4 89.7 89.7 Glucose Level 158 mg/dL (70-99) 158 mg/dL (70-99) 117 mg/dL (70-99) Calcium Level 8.4 mg/dL (8.5-10.1) 8.7 mg/dL (8.5-10.1) 8.2 mg/dL (8.5-10.1) Troponin I Quantitative 0.066 ng/mL (0-0.055) Triglycerides Level 99 mg/dL (0-150) Cholesterol Level 130 mg/dL (0-200) LDL Cholesterol, Calculated 82 mg/dL (0-100) VLDL Cholesterol, Calculated 19 mg/dL (0-40) Non-HDL Cholesterol Calculated 101 mg/dL (0-129) HDL Cholesterol 29 mg/dL (40-60) Cholesterol/HDL Ratio 4.0 Thyroid Stimulating Hormone (TSH) 3.273 uIU/mL (0.358-3.740) Free Thyroxine 0.90 ng/dL (0.76-1.46) Thyroxine (T4) 5.2 ug/dL (4.5-12.0) Total Triiodothyronine 63 ng/dL (71-180) Magnesium Level 2.0 mg/dL (1.8-2.4) Physical Exams HEENT: Neck Supple W Full Motion Chest: Symmetric Lungs: Other (diminished ) Heart: S1S2, RRR (SR/ST) Abdomen: Soft N/T, Other (obesse ) Extremities: Other (1-2+ bilateral LE edema ) Neurology: alert, oriented, follow commands Assessment Assessment 1. Acute respiratory failure; multifactorial with a/c CHF and severe untreated MIKO 2. Acute on chronic systolic CHF 3. Cardiomyopathy; LVEF 10% per echo. New finding 4. Mild troponin elevation; peak 0.08. Most probable type II, demand ischemia. CP free. 5. Hypertension; controlled 6. Hyperlipidemia 7. Severe MIKO; CPAP at home, but does not use 8. Morbid obesity 9. ETOH; has been drinking more here recently since losing his job. Recommendations Continue aggressive diuresis HF optimization with BB, ACEi, Lasix, and spironolactone Reinforced importance of compliance with CPAP 2000cc FR, 2Gm Na diet Will need close outpatient followup Re-evaluate LVEF with echo on an outpatient basis in 3 months Consider outpatient ischemic evaluation LETICIA CEJA MD 11/26/19 0271: CARDIO Progress Notes Assessment Assessment Patient seen and examined 1. Acute respiratory failure; multifactorial with a/c CHF and severe untreated MIKO. Gradually improving on present treatment. 2. Acute on chronic systolic CHF. Continuing diuresis. 3. Cardiomyopathy; LVEF 10% per echo. New finding 4. Mild troponin elevation; peak 0.08. Most probable type II, demand ischemia. CP free. 5. Hypertension; controlled 6. Hyperlipidemia 7. Severe MIKO; CPAP at home, but does note use 8. Morbid obesity 9. ETOH; has been drinking more here recently since losing his job. DEBBIE SANCHEZ APRN Nov 26, 2019 08:35 LETICIA CEJA MD Nov 26, 2019 16:55
[2019-11-26] MEDS: MULTIVITAMIN with MINERAL TABLET. PO SCH (09:05)
[2019-11-26] MEDS: SPIRONOLACTONE 25 MG TABLET PO SCH (09:06)
[2019-11-26] MEDS: METOPROLOL SUCC 24HR ER 25 MG TAB.ER.24H. PO SCH (09:06)
[2019-11-26] MEDS: FUROSEMIDE 40 MG/4 ML VIAL IVP SCH ×2 (09:07→16:07)
[2019-11-26] MEDS: FLUTICASONE 50MCG/NASAL SPRAY 16GM BOTTLE. NS SCH (09:07)
[2019-11-26] MEDS: LISINOPRIL 5 MG TABLET. PO SCH (09:10)
[2019-11-26 11:00] VITALS: BP 120/94
[2019-11-26 15:00] VITALS: BP 130/90
[2019-11-26 17:00] VITALS: BP 127/88
--- NOTE | 2019-11-26 18:18 | PN ---
DATE: 11/26/2019 SUBJECTIVE: The patient is DICTATION ENDS HERE. CHRISTA CHAKRABORTY MD DR: [place] JOB#: [id number] / [id number]
--- NOTE | 2019-11-26 20:02 | PN ---
DATE: 11/26/2019 SUBJECTIVE: This is a 49-year-old male patient, who is resting slightly propped up in bed, in no apparent distress. He is now on multiple diuretics and according to him, he lost about 14 pounds. On questioning him, he continued to complain of shortness of breath on exertion. PHYSICAL EXAMINATION: GENERAL: When I examined him, he looked well and was clearly in no apparent respiratory distress. No pallor, jaundice, cyanosis or thyromegaly. No jugular venous distension. No limb edema. VITAL SIGNS: Stable. The rest of clinical exam is stable. His intake was 2200, output was 4925. LABORATORY DATA: His white cell count is 10,000, hemoglobin 15, hematocrit 46, MCV was 84 and platelet count 235,000. Serum sodium 140, potassium 3.7, chloride 100, bicarbonate 38, anion gap of 2, BUN 15, creatinine 0.9, estimated GFR was 89 mL per minute. His glucose 117, calcium was 8.2, magnesium was 2. ASSESSMENT: 1. Acute respiratory failure, multifactorial including: A. Morbid obesity and obstructive sleep apnea. B. Congestive heart failure, acute on chronic systolic congestive heart failure. 2. Cardiomyopathy with left ventricular ejection fraction of only 10%. 3. Mild troponin elevation, likely demand ischemia. 4. Hypertension. 5. Hyperlipidemia. 6. Severe obstructive sleep apnea, morbid obesity and alcoholism. PLAN: To continue with current plan of management. Continue with the diuretics. He will be discharged home tomorrow with a plan to arrange for cardiac catheterization once he has insurance intake. CHRISTA CHAKRABORTY MD DR: EDI/errol JOB#: [id number] / [id number]
[2019-11-26 20:04] VITALS: BP 130/80
[2019-11-27 00:01] VITALS: BP 102/75
[2019-11-27] MEDS ORDERED: ALPRAZolam 0.25 MG TABLET PO PRN (00:15)
--- NOTE | 2019-11-27 00:53 | NUR ---
Pt is anxious and can't sit still. Pt states, "It's going to be a long night." Pt is sitting up in the chair. Will continue to monitor.
--- NOTE | 2019-11-27 03:00 | NUR ---
Pt woke up at this time, ripped off his c-pap, and was confused. Pt voided, and went back to bad. Bed alarm on. Will continue to monitor.
[2019-11-27 06:23] VITALS: BP 123/74
[2019-11-27] MEDS: FLUTICASONE 50MCG/NASAL SPRAY 16GM BOTTLE. NS SCH (08:27)
[2019-11-27] MEDS: LISINOPRIL 5 MG TABLET. PO SCH (08:37)
[2019-11-27] MEDS: FUROSEMIDE 40 MG/4 ML VIAL IVP SCH ×2 (08:37→14:00)
[2019-11-27] MEDS: LEVOTHYROXINE 75 MCG TABLET PO SCH (08:37)
[2019-11-27] MEDS: SPIRONOLACTONE 25 MG TABLET PO SCH (08:37)
[2019-11-27] MEDS: METOPROLOL SUCC 24HR ER 25 MG TAB.ER.24H. PO SCH (08:38)
[2019-11-27] MEDS: MULTIVITAMIN with MINERAL TABLET. PO SCH (08:38)
[2019-11-27 09:31] LABS: BASO # 0.1 x10^3/uL (0.0-0.2); BASO % 1 % (0-3); EOS # 0.6 x10^3/uL (0.0-0.7); EOS % 6 % (0-3); HEMATOCRIT 50.8 % (39.0-53.0); HEMOGLOBIN 16.3 g/dL (13.0-17.5); LYMPH # 1.6 x10^3/uL (1.0-4.8); LYMPH % 16 % (24-48); MEAN CORPUSCULAR HEMOGLOBIN 28 pg (25-35); MEAN CORPUSCULAR HGB CONC 32 g/dL (31-37); MEAN CORPUSCULAR VOLUME 86 fL (79-100); MONO # 1.1 x10^3/uL (0.0-1.1); MONO % 11 % (0-9); NEUT # 6.8 x10^3uL (1.8-7.7); NEUT % 66 % (31-73); PLATELET COUNT 271 x10^3/uL (140-400); RED BLOOD COUNT 5.94 x10^6/uL (4.30-5.70); RED CELL DISTRIBUTION WIDTH 14.7 % (11.5-14.5); WHITE BLOOD COUNT 10.3 x10^3/uL (4.0-11.0)
[2019-11-27 09:41] LABS: ALBUMIN 3.1 g/dL (3.4-5.0); ALBUMIN/GLOBULIN RATIO 0.9 (1.0-1.7); CALCIUM 8.3 mg/dL (8.5-10.1); GFR 79.4; POTASSIUM 4.4 mmol/L (3.5-5.1); TOTAL BILIRUBIN 0.5 mg/dL (0.2-1.0); TOTAL PROTEIN 6.7 g/dL (6.4-8.2)
[2019-11-27] MEDS ORDERED: HYDROCORTISONE 1% TOPICAL OINTMENT 30GM TUBE. TP SCH (11:30)
[2019-11-27 11:47] VITALS: BP 118/85
--- NOTE | 2019-11-27 14:34 | PDOC ---
PROGRESS NOTES Diagnosis Problem Problems Medical Problems: (1) CHF (congestive heart failure) Status: Acute (2) Hypoxemia Status: Acute Assessment 1. Acute respiratory failure; multifactorial with a/c CHF and severe untreated MIKO 2. Acute on chronic systolic CHF: Clinically better compensated with diuresis. Change Lasix to by mouth prior to discharge 3. Cardiomyopathy; LVEF 10% per echo probably related to his alcohol use. We will consider ischemic evaluation as an outpatient 4. Mild troponin elevation; peak 0.08. Most probable type II, demand ischemia. CP free. 5. Hypertension; controlled 6. Hyperlipidemia 7. Severe MIKO; CPAP at home, but does not use 8. Morbid obesity 9. ETOH; has been drinking more here recently since losing his job. Advised on the importance of abstinence considering his cardiomyopathy Subjective Feeling better today with improvement in dyspnea Objective Vital Signs Date Time Temp Pulse Resp B/P (MAP) Pulse Ox O2 Delivery O2 Flow Rate FiO2 11/27/19 11:47 97.2 100 24 118/85 (96) 92 Nasal Cannula 3.0 Intake and Output 11/27/19 07:00 Intake Total 1990 ml Output Total 5700 ml Balance -3710 ml Intake Oral 1990 ml Output Urine Total 5700 ml # Bowel Movements 1 Abdomen: Soft, No tenderness Heart: Regular rate Extremities: Other (1-2+ edema) General: No acute distress, Other (somnolent) HEENT: Atraumatic Lungs: Clear to auscultation Neck: Supple Neuro: Normal speech Review of Relevant I have reviewed the following items earl (where applicable) has been applied. Labs Laboratory Tests Test 11/27/19 08:27 White Blood Count 10.3 x10^3/uL (4.0-11.0) Red Blood Count 5.94 x10^6/uL (4.30-5.70) H Hemoglobin 16.3 g/dL (13.0-17.5) Hematocrit 50.8 % (39.0-53.0) Mean Corpuscular Volume 86 fL (79-100) Mean Corpuscular Hemoglobin 28 pg (25-35) Mean Corpuscular Hemoglobin Concent 32 g/dL (31-37) Red Cell Distribution Width 14.7 % (11.5-14.5) H Platelet Count 271 x10^3/uL (140-400) Neutrophils (%) (Auto) 66 % (31-73) Lymphocytes (%) (Auto) 16 % (24-48) L Monocytes (%) (Auto) 11 % (0-9) H Eosinophils (%) (Auto) 6 % (0-3) H Basophils (%) (Auto) 1 % (0-3) Neutrophils # (Auto) 6.8 x10^3uL (1.8-7.7) Lymphocytes # (Auto) 1.6 x10^3/uL (1.0-4.8) Monocytes # (Auto) 1.1 x10^3/uL (0.0-1.1) Eosinophils # (Auto) 0.6 x10^3/uL (0.0-0.7) Basophils # (Auto) 0.1 x10^3/uL (0.0-0.2) Sodium Level 142 mmol/L (136-145) Potassium Level 4.4 mmol/L (3.5-5.1) Chloride Level 101 mmol/L (98-107) Carbon Dioxide Level 38 mmol/L (21-32) H Anion Gap 3 (6-14) L Blood Urea Nitrogen 14 mg/dL (8-26) Creatinine 1.0 mg/dL (0.7-1.3) Estimated GFR (Cockcroft-Gault) 79.4 BUN/Creatinine Ratio 14 (6-20) Glucose Level 130 mg/dL (70-99) H Calcium Level 8.3 mg/dL (8.5-10.1) L Total Bilirubin 0.5 mg/dL (0.2-1.0) Aspartate Amino Transferase (AST) 31 U/L (15-37) Alanine Aminotransferase (ALT) 41 U/L (16-63) Alkaline Phosphatase 74 U/L (46-116) Total Protein 6.7 g/dL (6.4-8.2) Albumin 3.1 g/dL (3.4-5.0) L Albumin/Globulin Ratio 0.9 (1.0-1.7) L Medications Current Medications Medications (Trade) Dose Ordered Sig/Blas Route PRN Reason Start Time Stop Time Status Last Admin Dose Admin Alprazolam (Xanax) 0.25 mg PRN TID PRN PO ANXIETY / AGITATION 11/27/19 00:15 11/27/19 00:16 Hydrocortisone (Cortaid) 1 beverley BID TP 11/27/19 11:30 1/4/20 11:30 Vitals/I & O Vital Signs Date Time Temp Pulse Resp B/P (MAP) Pulse Ox O2 Delivery O2 Flow Rate FiO2 11/27/19 11:47 97.2 100 24 118/85 (96) 92 Nasal Cannula 3.0 I & O 11/26/19 11/26/19 11/27/19 15:00 23:00 07:00 Intake Total 1210 ml 480 ml 300 ml Output Total 2700 ml 2800 ml 200 ml Balance -1490 ml -2320 ml 100 ml CHOLO GEORGE MD Nov 27, 2019 14:34
[2019-11-27] MEDS ORDERED: LISI-338 PO (15:07)
[2019-11-27] MEDS ORDERED: METO-239 PO (15:08)
[2019-11-27] MEDS ORDERED: SPIR25TA5 PO (15:09)
[2019-11-27] MEDS ORDERED: FURO40TA4 PO (15:10)
--- NOTE | 2019-11-27 15:35 | NUR ---
Dr Mukherjee here to see pt this afternoon. Pt to continue current med regimen and f/u in office in one month. Dr Ballesteros here to see pt. Scripts given to pt. IV dcd RFA without difficulty. 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 Pt packed up belongings. Information given on low salt diet and HF.
--- NOTE | 2019-11-27 15:38 | DS ---
DATE OF DISCHARGE: HOSPITAL COURSE: The patient is a 49-year-old male patient who was admitted with worsening shortness of breath that started about 2 weeks ago and has worsened over the last 2 days before the admission. 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 He was extensively evaluated in the emergency room. His lab work was unremarkable. His chemistry is also unremarkable. Cardiac enzymes were slightly elevated. He was seen in consultation by the cardiology team and has had an echocardiogram, which showed that he has severe left ventricular systolic dysfunction with ejection fraction was only 10-15% with severe global hypokinesis of the left ventricle, ascending aorta is mildly dilated at 3.5, and the patient's medications were adjusted and was started on Lasix and spironolactone as well as metoprolol and lisinopril and a decision was made to discharge him to continue all his medication and to follow the cardiology team in 1 month's time. Meanwhile our nurse case manager apparently was helping him to apply for disability, so that he can have his cardiac catheterization. PHYSICAL EXAMINATION: GENERAL: When I saw him this afternoon, he was resting, slightly propped up in bed, in no apparent respiratory distress. No pallor, jaundice, cyanosis. No lymphadenopathy or thyromegaly. No jugular venous distention. No lower limb edema. VITAL SIGNS: His heart rate was 100, blood pressure was 118/85, temperature 97.2, respiratory rate was 24, and oxygen saturation was 92% on room air. The rest of clinical examination is stable, has not really changed. LABORATORY DATA: This morning showed a serum sodium 142, potassium 4.4, chloride 101, bicarbonate 38, anion gap of 3, BUN 14, creatinine 1, estimated GFR was 79 mL per minute, his glucose 130, calcium was 8.3, magnesium 2. Total bilirubin, AST, ALT, alkaline phosphatase were normal. Total protein was 6.7, albumin was 3.1. His thyroid function, free T4, total T4 and total T3 are all within normal range. His white cell count was 10,000, hemoglobin 16, hematocrit 50, MCV 86 and platelet count 271,000. His D-dimer was slightly elevated at 0.58. He underwent a CT angio of the chest, which showed no evidence of pulmonary emboli. He has mild ground glass opacities, are nonspecific, and likely discoid atelectasis. Doppler ultrasound of both lower extremities showed no evidence of lower extremity deep vein thrombosis. DISCHARGE MEDICATIONS: He was discharged home to continue on following medications: Lisinopril 5 mg once a day, metoprolol succinate, Toprol-XL, 25 mg once a day, spironolactone 25 mg once a day, furosemide 40 mg twice a day, Flonase 2 sprays to each nostril once a day, multivitamin 1 tablet once a day, levothyroxine 75 mcg once a day. FINAL DISCHARGE DIAGNOSES: 1. Acute respiratory failure, multifactorial including: a. Morbid obesity, obstructive sleep apnea. b. Congestive heart failure, acute on chronic systolic congestive heart failure. 2. Cardiomyopathy with left ventricular ejection fraction of only 10%. 3. Mild troponin elevation, likely demand ischemia. 4. Hypertension. 5. Hyperlipidemia. 6. Severe obstructive sleep apnea. 7. Morbid obesity. 8. Alcoholism. 9. Hypothyroidism. CHRISTA CHAKRABORTY MD DR: EDI/errol JOB#: [id number] / [id number]
[2019-11-28] MEDS ORDERED: FUROSEMIDE 40 MG TABLET PO SCH (09:00)
== END 2019-11-27 15:35 | disposition home or self-care (01) | DRG 291 ==
LOC: ER 15:22 → ICU 17:50
PROVIDERS: ADMIT Internal Medicine; ATTEND Internal Medicine
PROC: 5A09357 Assistance with Respiratory Ventilation, Less than 24 Consecutive Hours, Continuous Positive Airway Pressure (ICD-10-PCS; principal; 2019-11-25)
PROC: 5A09357 Assistance with Respiratory Ventilation, Less than 24 Consecutive Hours, Continuous Positive Airway Pressure (ICD-10-PCS; 2019-11-27)
DX: I11.0 Hypertensive heart disease with heart failure (principal); J96.21 Acute and chronic respiratory failure with hypoxia; Z68.41 Body mass index [BMI] 40.0-44.9, adult; I24.8 Other forms of acute ischemic heart disease; I50.43 Acute on chronic combined systolic (congestive) and diastolic (congestive) heart failure; I42.9 Cardiomyopathy, unspecified; F32.9 Major depressive disorder, single episode, unspecified; E03.9 Hypothyroidism, unspecified; J44.9 Chronic obstructive pulmonary disease, unspecified; E66.01 Morbid (severe) obesity due to excess calories; G47.33 Obstructive sleep apnea (adult) (pediatric); K59.00 Constipation, unspecified; E78.5 Hyperlipidemia, unspecified; F10.20 Alcohol dependence, uncomplicated; Z56.0 Unemployment, unspecified; Z88.8 Allergy status to other drugs, medicaments and biological substances; Z82.49 Family history of ischemic heart disease and other diseases of the circulatory system
CPT/HCPCS: 36415; 71045; 71275; 80048; 80053; 80061; 82803; 83735; 83880; 84436; 84439; 84443; 84480; 84484; 85025; 85379; 93005; 93306; 93971; 94640; J1940; J7620; Q9967; 99285-25